=== PATIENT | male | born 1995 | race Caucasian/White ===

== ENCOUNTER 2020-04-01 13:24 | Emergency (ER) | payer OTHER, MEDICAID ==
[~2020-04-01] VITALS: Ht 175.3 cm; Wt 70.3 kg
[2020-04-01 13:36] VITALS: BP_SYST 135
--- NOTE | 2020-04-01 13:42 | NUR ---
Patient to ER bed 5 to gown for evaluation. Side rails up. Report given to Pablo BALDERAS.
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
--- NOTE | 2020-04-01 13:46 | NUR ---
ER at bedside examining patient.
--- NOTE | 2020-04-01 14:21 | NUR ---
pt returned from CT
[2020-04-01 15:05] VITALS: BP_SYST 135
--- NOTE | 2020-04-01 15:05 | NUR ---
Patient given written and verbal discharge instructions and verbalizes understanding. ER MD discussed with patient the results and treatment provided. Patient in stable condition. ID arm band removed. Rx of Robaxin and Ibuprofen given. Patient educated on pain management and to follow up with PMD. Pain Scale 3/10.Opportunity for questions provided and answered. Medication side effect fact sheet provided.
== END 2020-04-01 15:05 | disposition home or self-care (01) ==
LOC: SED 13:24
DX: S16.1XXA Strain of muscle, fascia and tendon at neck level, initial encounter (principal); S00.03XA Contusion of scalp, initial encounter; V49.69XA Unspecified car occupant injured in collision with other motor vehicles in traffic accident, initial encounter; Y93.89 Activity, other specified; Y92.89 Other specified places as the place of occurrence of the external cause; Y99.8 Other external cause status
CPT/HCPCS: 70450-TC; 72125-TC; 76376; 99285

== ENCOUNTER 2020-07-26 10:49 | Emergency (ER) | payer MEDICAID ==
[~2020-07-26] VITALS: Ht 172.7 cm; Wt 70.3 kg
--- NOTE | 2020-07-26 10:57 | NUR ---
Placed in room 6. Placed on alarm security or surveillance monitor, blood pressure machine and pulse oximeter. To gown for exam. Side rails up.
[2020-07-26 10:58] VITALS: BP_SYST 142
--- NOTE | 2020-07-26 11:03 | NUR ---
PT CAME IN FROM HOME FOR RIGHT MID BACK PAIN, STATES HE LIFTED A HEAVY OBJECT AT WORK YESTERDAY AND HAS HAD PAIN SINCE. REPORTS NO TAKING ANY MEDIATION AT HOME FOR THE PAIN. PT IS AMBULATORY, [id number], V/S STABLE
--- NOTE | 2020-07-26 11:08 | NUR ---
ER DR. BECKER AT THE BEDSIDE EXAMINING PT
[2020-07-26] MEDS ORDERED: KETOROLAC TROMETHAMINE 30 MG VIAL IM ONE (11:30)
[2020-07-26 11:42] LABS: BILIRUBIN,URINE NEGATIVE (NEGATIVE); BLOOD, URINE NEGATIVE (NEGATIVE); COLOR,URINE YELLOW (YELLOW); GLUCOSE,URINE NEGATIVE (NEGATIVE); KETONES,URINE NEGATIVE (NEGATIVE); LEUKOCYTE ESTERASE ,URINE NEGATIVE (NEGATIVE); NITRITE, URINE NEGATIVE (NEGATIVE); PROTEIN URINE NEGATIVE (NEGATIVE); UROBILINOGEN,URINE 0.2 (0.2-1.0)
[2020-07-26 11:44] LABS: CLARITY/URINE HAZY (CLEAR)
[2020-07-26 11:49] LABS: BACTERIA,URINE RARE /HPF (None Seen); RBC,URINE 0-3 /HPF (0-3); WBC,URINE 0-3 /HPF (0-3)
--- NOTE | 2020-07-26 11:49 | NUR ---
PORTABLE X-RAY AT THE BEDSIDE
[2020-07-26 11:50] LABS: MUCUS,URINE 1+ /LPF (None Seen); URINE AMORPHOUS PHOSPHATES 3+ /HPF (None Seen)
[2020-07-26] MEDS ORDERED: NAPR-1172 PO (12:53)
[2020-07-26] MEDS ORDERED: CYCL-10 PO (12:55)
[2020-07-26 13:12] VITALS: BP_SYST 142
--- NOTE | 2020-07-26 13:14 | NUR ---
Patient given written and verbal discharge instructions and verbalizes understanding. ER MD discussed with patient the results and treatment provided. Patient in stable condition. ID arm band removed. Rx of Cyclobenzaprine and Naproxen given. Patient educated on pain management and to follow up with PMD. Pain Scale 2/10 . Opportunity for questions provided and answered. Medication side effect fact sheet provided.
== END 2020-07-26 13:14 | disposition home or self-care (01) ==
LOC: SED 10:49
DX: M54.9 Dorsalgia, unspecified (principal); R07.89 Other chest pain
CPT/HCPCS: 71045; 81000; 96372; 99284; J1885

== ENCOUNTER 2022-03-09 10:40 | Emergency (ER) | payer MEDICAID ==
[~2022-03-09] VITALS: Ht 175.3 cm; Wt 70.3 kg
[~2022-03-09 10:40] MED LIST: CYCL10TA24 PO; NAPR-1172 PO
[2022-03-09 10:45] VITALS: BP_SYST 125
--- NOTE | 2022-03-09 10:45 | NUR ---
Patient triaged and placed in waiting room. VSS and patient appears in no acute distress at this time. Accompanied by SELF, awaiting available bed, and MD notified of need for MSE.
[2022-03-09 11:23] LABS: BASOPHILS # (AUTO) 0.1 K/uL (0.0-0.2); EOSINOPHILS # (AUTO) 0.2 K/uL (0.0-0.4); EOSINOPHILS % (AUTO) 1.8 % (0.0-4.0); HEMATOCRIT 44.7 % (36-54); HEMOGLOBIN 15.6 g/dL (14.0-18.0); LYMPHOCYTES # (AUTO) 3.9 K/uL (1.0-5.5); LYMPHOCYTES % (AUTO) 39.7 % (20.5-51.5); MEAN CORPUSCULAR HEMOGLOBIN 31 pg (27-31); MEAN CORPUSCULAR HGB CONC 35 % (32-36); MEAN CORPUSCULAR VOLUME 87 fL (79.0-98.0); MONOCYTES # (AUTO) 0.6 K/uL (0.0-1.0); MONOCYTES % (AUTO) 6.1 % (1.7-9.3); NEUTROPHILS # (AUTO) 5.1 K/uL (1.8-7.7); NEUTROPHILS % (AUTO) 51.4 % (40.0-70.0); PLATELET COUNT (AUTO) 289 K/uL (130-430); RED BLOOD CELL COUNT(AUTO) 5.14 MIL/uL (4.2-6.2); RED CELL DISTRIBUTION WIDTH 12.7 % (9.0-15.0); WHITE BLOOD COUNT (AUTO) 9.9 K/uL (4.8-10.8)
[2022-03-09 11:47] LABS: CALCIUM 9.1 mg/dL (8.4-11.0); CREATININE 1.13 mg/dL (0.55-1.30)
[2022-03-09 11:53] LABS: ALBUMIN 4.5 g/dL (3.4-4.8); TOTAL BILIRUBIN 0.5 mg/dL (0.0-1.0)
== END 2022-03-09 13:00 | disposition left against medical advice (07) ==
LOC: SED 10:40
DX: R10.11 Right upper quadrant pain (principal); Z53.21 Procedure and treatment not carried out due to patient leaving prior to being seen by health care provider
CPT/HCPCS: 36415; 80053; 83690; 85025